=== PATIENT | female | born 1990 | race Caucasian/White ===

== ENCOUNTER 2017-10-03 16:55 | Outpatient (CLI) | payer OTHER ==
[2017-10-03] MEDS: CLOBETASOL PROP 0.05% OINT 30 GM TOP (18:28)
[2017-10-03 18:53] LABS: ALBUMIN 2.9 GM/DL (3.2-5.2); ALBUMIN/GLOBULIN RATIO 0.85 (1.00-1.93); ALKALINE PHOSPHATASE 104 U/L (45-117); ALT/SGPT 18 U/L (12-78); AST/SGOT 14 U/L (7-37); BILIRUBIN,DIRECT < 0.1 MG/DL (0.0-0.2); BILIRUBIN,TOTAL 0.3 MG/DL (0.2-1.0); TOTAL PROTEIN 6.3 GM/DL (6.4-8.2)
[2017-10-03] MEDS ORDERED: CLOBETASOL PROP 0.05% OINT 30 GM TOP (21:00)
[2017-10-05 11:23] LABS: HEPATITIS C VIRUS ABY INDEX 0.1 INDEX (<0.8)
[2017-10-07 14:26] LABS: BILE ACIDS FRACTIONATED 7.2 umol/L (4.7-24.5)
== END 2017-10-03 19:00 | disposition home or self-care (01) ==
LOC: M LDO 16:55
DX: O99.89 Other specified diseases and conditions complicating pregnancy, childbirth and the puerperium (principal); Z3A.35 35 weeks gestation of pregnancy; O99.713 Diseases of the skin and subcutaneous tissue complicating pregnancy, third trimester; R21 Rash and other nonspecific skin eruption; L50.9 Urticaria, unspecified
CPT/HCPCS: G0463

== ENCOUNTER → 2017-10-08 | Outpatient (REF) | payer OTHER | LOC: M LAB REF 13:42 | DX: Z34.83 Encounter for supervision of other normal pregnancy, third trimester (principal) ==

== ENCOUNTER 2017-11-03 17:51 | Inpatient (IN) | payer OTHER ==
[2017-11-03] MEDS ORDERED: OXYTOCIN DRIP 30 UNITS in APPROPRIATE DILUENT 1 EA IV (18:30)
[2017-11-03] MEDS: LR 1,000 ML IV (18:41)
[2017-11-03] MEDS: PENICILLIN G POTASSIUM IV 5 MU in D5W MINI-BAG PLUS 100 ML IV (18:41)
[2017-11-03 18:56] LABS: HEMOGLOBIN 12.1 g/dl (12.0-15.5); MEAN CORPUSCULAR HGB CONC 33.6 g/dl (32.0-36.5); MEAN CORPUSCULAR VOLUME 95.2 fl (80.0-96.0); PLATELET COUNT, AUTOMATED 229 10^3/uL (150-450); RED BLOOD COUNT 3.78 10^6/uL (4.00-5.40); RED CELL DISTRIBUTION WIDTH 13.2 % (11.5-14.5); WHITE BLOOD COUNT 9.4 10^3/uL (4.0-10.0)
[2017-11-03] MEDS: LACTATED RINGER'S 1000 ML IV (20:41)
[2017-11-03] MEDS ORDERED: FENTANYL 2MCG/ML ROPIVACAINE 0.2% IN 0.9% NACL 200ML IVBAG As Ordered (20:47)
[2017-11-03] MEDS ORDERED: ONDANSETRON 4MG/2ML VIAL (J2405) IV (22:15)
[2017-11-03] MEDS ORDERED: ePHEDrine SULFATE 25 MG/5 ML(5MG/ML) SYRINGE IV (22:15)
[2017-11-03] MEDS ORDERED: LACTATED RINGER'S 1000 ML IV (22:15)
[2017-11-03] MEDS ORDERED: EPIDURAL COMMENT XX (22:15)
[2017-11-03] MEDS ORDERED: REFRIGERATOR IV KEYS XX (22:15)
[2017-11-03] MEDS ORDERED: NALOXONE INJ 0.4 MG/1 ML VIAL (J2310) IV (22:15)
[2017-11-03] MEDS ORDERED: FENTANYL/ROPIVACAINE/NACL BAG 200 ML EPIDURAL (22:15)
[2017-11-03] MEDS ORDERED: diphenhydrAMINE INJ 50MG/ML VIAL (J1200) IV (22:15)
[2017-11-03] MEDS ORDERED: EPIDURAL/PCA KEYS XX (22:15)
[2017-11-03] MEDS ORDERED: RHOGAM 300 MCG (1500 IU) INJ (J2790) IM (23:00)
[2017-11-03] MEDS ORDERED: METHYLERGONOVINE MALEATE 0.2 MG TAB PO (23:00)
[2017-11-03] MEDS ORDERED: PENICILLIN G POTASSIUM IV 2.5 MU in APPROPRIATE DILUENT 1 EA IV (23:00)
[2017-11-03] MEDS ORDERED: ANUSOL HC CREAM 30GM TOP (23:00)
[2017-11-04] MEDS: DIBUCAINE 1% OINTMENT 30GM TOP (01:52)
[2017-11-04] MEDS: IBUPROFEN 800 MG TAB PO ×3 (01:52→16:32)
[2017-11-04] MEDS: ACETAMINOPHEN 500 MG TAB PO (05:24)
[2017-11-04] MEDS: PRENATAL VITAMINS CHEWABLE TABLET PO (10:06)
[2017-11-04] MEDS: PERCOCET 5MG/325MG TAB PO ×2 (14:06→23:16)
[2017-11-04] MEDS: DOCUSATE SODIUM 100 MG CAP PO (23:15)
[2017-11-05] MEDS: IBUPROFEN 800 MG TAB PO (05:35)
[2017-11-05] MEDS: PRENATAL VITAMINS CHEWABLE TABLET PO (08:55)
[2017-11-05] MEDS: MEASLES,MUMPS,RUBELLA VACCINE INJ (MMR-II) (90707) SC (13:44)
[2017-11-05] MEDS: MOM 30ML SUSPENSION UDC PO (14:07)
== END 2017-11-05 15:00 | disposition home or self-care (01) | DRG 775 ==
LOC: M LDI 17:51 → M OBS 11-04 01:07
PROVIDERS: Advanced Practice Midwife
PROC: 10E0XZZ Delivery of Products of Conception, External Approach (ICD-10-PCS; principal; 2017-11-03)
PROC: 0HQ9XZZ Repair Perineum Skin, External Approach (ICD-10-PCS; 2017-11-03)
PROC: 10907ZC Drainage of Amniotic Fluid, Therapeutic from Products of Conception, Via Natural or Artificial Opening (ICD-10-PCS; 2017-11-03)
DX: O48.0 Post-term pregnancy (principal); Z37.0 Single live birth; Z3A.40 40 weeks gestation of pregnancy; O70.0 First degree perineal laceration during delivery

== ENCOUNTER → 2018-07-08 | Outpatient (CLI) | payer OTHER ==
[~2018-07-08] MED LIST: IBUP-1022 PO; PRENTAB9 PO
[2018-07-08 11:30] LABS: BASO % 0.5 % (0.0-1.0); EOS # 0.1 10^3/uL (0.0-0.50); EOS % 0.8 % (0.0-3.0); HEMATOCRIT 40.7 % (36.0-47.0); HEMOGLOBIN 13.5 g/dl (12.0-15.5); LYMPH # 1.4 10^3/uL (1.5-6.5); MEAN CORPUSCULAR HEMOGLOBIN 30.7 pg (27.0-33.0); MEAN CORPUSCULAR HGB CONC 33.2 g/dl (32.0-36.5); MEAN CORPUSCULAR VOLUME 92.5 fl (80.0-96.0); MONO # 0.5 10^3/uL (0.0-0.8); NEUTROPHILS % 67.5 % (36.0-66.0); PLATELET COUNT, AUTOMATED 251 10^3/uL (150-450)
[2018-07-08 11:50] LABS: HEMOGLOBIN A1c 5.3 %
[2018-07-08 12:13] LABS: ALBUMIN 3.9 GM/DL (3.2-5.2); ALT/SGPT 19 U/L (12-78); BILIRUBIN,TOTAL 0.5 MG/DL (0.2-1.0); BLOOD UREA NITROGEN 11 MG/DL (7-18); CALCIUM LEVEL 8.5 MG/DL (8.5-10.1); CARBON DIOXIDE LEVEL 29 MEQ/L (21-32); CHLORIDE LEVEL 107 MEQ/L (98-107); CHOLESTEROL LEVEL 116 MG/DL (<200); CHOLESTEROL RISK RATIO 2.148 (<5); CREATININE FOR GFR 0.53 MG/DL (0.55-1.30); FERRITIN 42 NG/ML (8-252); FREE T4 1.13 NG/DL (0.76-1.46); GLOMERULAR FILTRATION RATE > 60.0 (>60); GLUCOSE, FASTING 75 MG/DL (70-100); HDL CHOLESTEROL 54 MG/DL (>40); IRON (FE) 123 UG/DL (50-170); LDL CHOLESTEROL 55 MG/DL (<100); NON-HDL-C 62 MG/DL; PERCENT SATURATION 38.1 % (13.2-45.0); POTASSIUM SERUM 4.2 MEQ/L (3.5-5.1); SODIUM LEVEL 142 MEQ/L (136-145); THYROID STIMULATING HORMONE 0.553 uIU/ML (0.358-3.740); TOTAL IRON BINDING CAPACITY 323 UG/DL (250-450); TOTAL PROTEIN 7.2 GM/DL (6.4-8.2); TRIGLYCERIDES LEVEL 35 MG/DL (<150); VITAMIN B12 LEVEL 245 PG/ML
== END ==
LOC: M LAB 10:32
PROVIDERS: ATTEND Physician Assistant
DX: Z13.29 Encounter for screening for other suspected endocrine disorder (principal); D64.9 Anemia, unspecified

== ENCOUNTER → 2019-03-30 | Outpatient (REF) | payer OTHER | LOC: M LAB REF 16:57 | PROVIDERS: ATTEND Physician Assistant | DX: M54.5 Low back pain (principal) ==

== ENCOUNTER → 2019-04-01 | Outpatient (CLI) | payer OTHER ==
[2019-04-01 09:23] LABS: BASO % 0.6 % (0.0-1.0); EOS # 0.1 10^3/uL (0.0-0.5); HEMATOCRIT 40.5 % (36.0-47.0); HEMOGLOBIN 13.5 g/dl (12.0-15.5); LYMPH # 1.2 10^3/uL (1.5-5.0); LYMPH % 24.4 % (24.0-44.0); MEAN CORPUSCULAR HEMOGLOBIN 31.3 pg (27.0-33.0); MEAN CORPUSCULAR HGB CONC 33.3 g/dl (32.0-36.5); MONO # 0.4 10^3/uL (0.0-0.8); MONO % 8.4 % (0.0-5.0); NEUTROPHILS # 3.3 10^3/uL (1.5-8.5); NEUTROPHILS % 65.2 % (36.0-66.0); PLATELET COUNT, AUTOMATED 256 10^3/uL (150-450); RED BLOOD COUNT 4.31 10^6/uL (4.00-5.40); WHITE BLOOD COUNT 5.1 10^3/uL (4.0-10.0)
[2019-04-01 09:49] LABS: ALBUMIN 4.3 GM/DL (3.2-5.2); ALT/SGPT 17 U/L (12-78); BILIRUBIN,TOTAL 0.4 MG/DL (0.2-1.0); BLOOD UREA NITROGEN 16 MG/DL (7-18); CALCIUM LEVEL 8.5 MG/DL (8.5-10.1); CARBON DIOXIDE LEVEL 28 MEQ/L (21-32); CHLORIDE LEVEL 110 MEQ/L (98-107); CREATININE FOR GFR 0.59 MG/DL (0.55-1.30); GLOMERULAR FILTRATION RATE > 60.0 (>60); GLUCOSE, FASTING 87 MG/DL (70-100); SODIUM LEVEL 143 MEQ/L (136-145); TOTAL PROTEIN 7.1 GM/DL (6.4-8.2)
[2019-04-01 10:15] LABS: TOTAL 25(OH) VITAMIN D 27.2 NG/ML (30.0-100.0)
[2019-04-01 10:17] LABS: FOLATE 14.3 NG/ML; VITAMIN B12 LEVEL 391 PG/ML
== END ==
LOC: M LAB 08:40
PROVIDERS: ATTEND Physician Assistant
DX: D51.9 Vitamin B12 deficiency anemia, unspecified (principal)

== ENCOUNTER → 2019-04-05 | Outpatient (CLI) | payer OTHER ==
--- NOTE | 2019-04-05 12:03 | REP ---
The right flank pain. Technique: Real time nj scale, and color ultrasound examination using curved array transducer. Findings: The right kidney is normal in contour, size, echogenicity, and reniform shape without hydronephrosis, nephrolithiasis, cystic or renal mass lesion. Right kidney measures 11.3 x 5.1 x 4.1 cm. The left kidney measures 10.9 x 4.0 x 5.1 cm and includes 5 mm nonobstructing lower pole calculus without hydronephrosis, cystic or renal mass lesion. Impression: Normal right kidney. 5 mm nonobstructing left renal calculus. Electronically Signed by Shin Castaneda MD 04/05/2019 11:54 A
--- NOTE | 2019-04-05 12:04 | REP ---
Clinical: Right flank pain. Technique: Real time nj scale and color evaluation using curved array transducer. Findings: Bladder is normal in appearance without wall thickening or mass lesion. Prevoid bladder measures 45 ml. Postvoid bladder was completely emptied. Ureteral jets were not identified during examination. Impression: Poor distension of the bladder but with complete emptying noted. No obvious abnormality. Electronically Signed by Shin Castaneda MD 04/05/2019 11:55 A
== END ==
LOC: M RAD 11:06
PROVIDERS: ATTEND Physician Assistant
DX: M54.5 Low back pain (principal)

== ENCOUNTER → 2019-11-18 | Outpatient (CLI) | payer OTHER | LOC: M PLALAB 14:06 | PROVIDERS: ATTEND Obstetrics & Gynecology | DX: O09.511 Supervision of elderly primigravida, first trimester (principal); Z3A.00 Weeks of gestation of pregnancy not specified ==

== ENCOUNTER → 2019-12-23 | Outpatient (REF) | payer OTHER ==
[2019-12-23 12:57] LABS: HEMATOCRIT 35.3 % (36.0-47.0); HEMOGLOBIN 11.3 g/dl (12.0-15.5); MEAN CORPUSCULAR HEMOGLOBIN 30.6 pg (27.0-33.0); MEAN CORPUSCULAR VOLUME 95.7 fl (80.0-96.0); PLATELET COUNT, AUTOMATED 233 10^3/uL (150-450); RED BLOOD COUNT 3.69 10^6/uL (4.00-5.40); WHITE BLOOD COUNT 7.5 10^3/uL (4.0-10.0)
[2019-12-23 14:12] LABS: HEPATITIS C VIRUS ABY INDEX 0.1 INDEX (<0.8); HIV 1&2 SCREEN CENTAUR NEGATIVE (NEGATIVE)
== END ==
LOC: M PLALAB 08:57
PROVIDERS: ATTEND Obstetrics & Gynecology
DX: Z34.91 Encounter for supervision of normal pregnancy, unspecified, first trimester (principal)

== ENCOUNTER → 2020-01-11 | Outpatient (CLI) | payer OTHER ==
--- NOTE | 2020-01-11 16:57 | REP ---
INDICATION: ANATOMY COMPARISON: None. TECHNIQUE: Transabdominal obstetrical ultrasound with color Doppler evaluation. FINDINGS: Examination demonstrates a single live intrauterine in variable presentation. motion is identified by technologist. Placenta is noted posterior/fundal and grade 1 without evidence for placenta previa or abruption. Amniotic fluid volume is normal. Gestational age by current measurements 19 weeks 3 days with LINDA 06/03/2020. FHR equals 138 beats per minute. BPD: 4.5 cm 19 weeks 5 days HC: 16.9 cm 19 weeks 4 days AC: 14.4 cm 19 weeks 5 days FL: 2.9 cm 18 weeks 5 days HL: 2.9 cm 19 weeks 4 days HC/AC: 1.17 Estimated weight 285 grams (38thpercentile). Anatomical assessment demonstrates normal structures including cranium, choroid plexus, cavum, cerebellum/posterior fossa, facial features, lungs, diaphragm, stomach, cord insertion/three-vessel cord, kidneys/bladder, spine, and lower extremities. Limited evaluation of the heart/ventricular outflow tracts and bilateral upper extremities. IMPRESSION: Single live intrauterine in variable presentation. Estimated weight is within normal limits. Anatomical limitations warrant re-evaluation and follow-up. <Electronically signed by Shin Castaneda > 01/11/20 [id number]
== END ==
LOC: M WHC 13:34
PROVIDERS: ATTEND Advanced Practice Midwife
DX: Z34.92 Encounter for supervision of normal pregnancy, unspecified, second trimester (principal); Z3A.19 19 weeks gestation of pregnancy

== ENCOUNTER → 2020-01-24 | Outpatient (CLI) | payer OTHER | LOC: M WHC 11:03 | PROVIDERS: ATTEND Obstetrics & Gynecology | DX: Z34.92 Encounter for supervision of normal pregnancy, unspecified, second trimester (principal); Z3A.20 20 weeks gestation of pregnancy; Z53.9 Procedure and treatment not carried out, unspecified reason ==

== ENCOUNTER → 2020-01-25 | Outpatient (CLI) | payer OTHER ==
--- NOTE | 2020-01-25 17:03 | REP ---
INDICATION: F/U ANATOMY. COMPARISON: 2520. TECHNIQUE: Real-time sonographic evaluation of the gravid uterus performed. FINDINGS: Estimated gestational age is21 weeks 0 days, EDC 06/06/2020. Today's measurements indicate appropriate growth. Presentation: Transverse head maternal left side. Placenta posterior, grade 0, without evidence of placenta previa. heart rate is recorded at 133 beats per minute. Amniotic fluid is subjectively normal. Closed cervical length is measured at 3.2 cm. Biometry chart: BPD: 49 mm, 20 weeks 6 days, 47th percentile. HC: 187 mm, 21 weeks 0 days, 49th percentile AC: 159 mm, 21 weeks days, 50th percentile Femur length: 35 mm, weeks 6 days, percentile HC to AC ratio: 1.18, normal range . Estimated weight: 388g, 42nd percentile. anatomy: Cranium: Previously seen Lateral Ventricles/Choroid Plexus: Previously seen Posterior Fossa/Cerebellum: Previously seen Nose/lips/profile: Previously seen Four chamber heart: Not well seen due to position Right ventricular outflow tract: Not well seen due to position Left ventricular outflow tract: Not well seen due to position Left-sided stomach: Previously seen Kidneys: Previously seen Bladder: Previously seen Cord Insertion: Previously seen 3 vessel cord: Grossly normal Spine: Previously seen Upper extremities visualized on today's exam. IMPRESSION: Viable single intrauterine gestation as above. <Electronically signed by Kam Cowart > 01/25/20 [id number]
== END ==
LOC: M WHC 14:32
PROVIDERS: ATTEND Obstetrics & Gynecology
DX: Z34.92 Encounter for supervision of normal pregnancy, unspecified, second trimester (principal); Z3A.21 21 weeks gestation of pregnancy

== ENCOUNTER → 2020-01-31 | Outpatient (CLI) | payer OTHER | LOC: M WHC 12:50 | PROVIDERS: ATTEND Obstetrics & Gynecology | DX: Z53.21 Procedure and treatment not carried out due to patient leaving prior to being seen by health care provider (principal) ==

== ENCOUNTER → 2020-02-03 | Outpatient (CLI) | payer OTHER ==
--- NOTE | 2020-02-03 15:25 | REP ---
INDICATION: F/U ANATOMY. COMPARISON: 01/25/2020. TECHNIQUE: Real-time sonographic evaluation of the gravid uterus performed. FINDINGS: Estimated gestational age is22 weeks 2 days, EDC 06/06/2020. Today's measurements indicate appropriate growth. Presentation: Breech Placenta posterior and fundal, grade 1, without evidence of placenta previa. heart rate is recorded at 150 beats per minute. Amniotic fluid is subjectively normal. Closed cervical length is measured at 3.5 cm. Biometry chart: BPD: 52 mm, 21 weeks 6 days, 39th percentile. HC: 207 mm, 22 weeks 6 days, 66th percentile AC: 186 mm, 23 weeks 3 days, 73rd percentile Femur length: 37 mm, 21 weeks 5 days, 34th percentile HC to AC ratio: 1.12, normal range 1.04-1.23. Estimated weight: 524g, 62nd percentile. Four-chamber heart and ventricular outflow tracts are visualized on today's exam and are grossly unremarkable. IMPRESSION: Viable single intrauterine gestation as above. <Electronically signed by Kam Cowart > 02/03/20 [id number]
== END ==
LOC: M WHC 11:28
PROVIDERS: ATTEND Obstetrics & Gynecology
DX: Z34.82 Encounter for supervision of other normal pregnancy, second trimester (principal)

== ENCOUNTER → 2020-02-21 | Outpatient (REF) | payer OTHER | LOC: M PLALAB 16:00 | PROVIDERS: ATTEND Obstetrics & Gynecology | DX: Z3A.24 24 weeks gestation of pregnancy (principal); Z53.9 Procedure and treatment not carried out, unspecified reason ==